=== PATIENT | male | born 1985 | race Caucasian/White ===

== ENCOUNTER 2021-11-09 06:39 | Day surgery (SDC) | payer MEDICAID ==
[2021-11-09] VITALS (9 sets, daily range): BP systolic 124–140; BP diastolic 74–88
[~2021-11-09] VITALS: Ht 175.3 cm; Wt 106.9 kg
[2021-11-09] MEDS ORDERED: albumin 25% 100mL bottle x 1 IV PRN (07:00)
[2021-11-09] MEDS ORDERED: POTA-188 PO (07:02)
[2021-11-09] MEDS ORDERED: SPIR50TA5 PO (07:02)
[2021-11-09] MEDS ORDERED: NADO40TA3 PO (07:02)
[2021-11-09] MEDS ORDERED: FOLI1TAB27 PO (07:02)
[2021-11-09] MEDS ORDERED: THIA100T66 PO (07:02)
[2021-11-09] MEDS ORDERED: MULT-1249 PO (07:02)
[2021-11-09] MEDS ORDERED: FURO20TA4 PO (07:02)
[2021-11-09] MEDS ORDERED: LIDOcaine 1%/PF 5ML 10 MG/ML VIAL SQ ONE (07:05)
[2021-11-09 10:17] LABS: TOTAL PROTEIN,BODY FLUID < 2.0 G/DL
[2021-11-09 10:33] LABS: BF RBC COUNT 112 /CU MM; BF WBC COUNT 176 /CU MM (0-1000); BFAPPEAR CLEAR; BFCOLOR YELLOW; BFVOLUME 65 ML; LYMPHOCYTES,BODY FLUID 79 %; MONOCYTES,BODY FLUID 21 %; NEUTROPHILS,BODY FLUID 0 %
[2021-11-09 10:35] LABS: GLUCOSE,BODY FLUID 106 MG/DL
== END 2021-11-09 10:48 | disposition home or self-care (01) ==
LOC: SSTAY O 06:39
PROVIDERS: ATTEND Radiology Diagnostic Radiology
DX: K70.31 Alcoholic cirrhosis of liver with ascites (principal); Z79.899 Other long term (current) drug therapy
CPT/HCPCS: 49083; 82945; 84157; 89051; A6258

== ENCOUNTER 2023-11-19 15:30 | Outpatient (CLI) | payer OTHER ==
[~2023-11-19 15:30] MED LIST: FOLI1TAB27 PO; FURO20TA4 PO; GADOTERATE MEGLUMINE 7.5 MMOL/15 ML VIAL IV ONE; MULT-1249 PO; NADO40TA3 PO; POTA-188 PO; SPIR50TA5 PO; THIA100T66 PO
== END 2023-11-19 23:59 | disposition home or self-care (01) ==
LOC: MRI 15:30
PROVIDERS: ATTEND Nurse Practitioner Family
DX: R16.0 Hepatomegaly, not elsewhere classified (principal); K74.69 Other cirrhosis of liver
CPT/HCPCS: 74183; A9575